=== PATIENT | male | born 1970 | race Hispanic/Latino ===

== ENCOUNTER 2017-07-15 20:30 | Outpatient (CLI) | payer OTHER | END 2017-07-15 20:31 | disposition home or self-care (01) | LOC: SLEEPLAB 20:30 | PROVIDERS: ATTEND Internal Medicine | DX: G47.10 Hypersomnia, unspecified (principal); G47.33 Obstructive sleep apnea (adult) (pediatric); I10 Essential (primary) hypertension; R06.83 Snoring | CPT/HCPCS: 95811 ==